=== PATIENT | male | born 1990 | race Caucasian/White ===

== ENCOUNTER 2019-11-16 19:04 | Emergency (ER) | payer MEDICAID ==
[~2019-11-16] VITALS: Ht 177.8 cm; Wt 114.8 kg
--- NOTE | 2019-11-16 19:36 | NUR ---
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
[2019-11-16] MEDS ORDERED: IBUPROFEN 800 MG TABLET ONE (19:39)
[2019-11-16] MEDS ORDERED: IBUPROFEN 800 MG TABLET PO ONE (19:45)
--- NOTE | 2019-11-16 19:49 | NUR ---
Xray at bedside.
--- NOTE | 2019-11-16 20:42 | NUR ---
Patient discharged to home in stable conditon. Written and verbal after care instructions given. Patient verbalizes understanding of instructions. Patient ambulated with stable gait.
[2019-11-16 20:43] VITALS: BP 132/79
== END 2019-11-16 20:43 | disposition home or self-care (01) ==
LOC: ER 19:09
DX: S90.122A Contusion of left lesser toe(s) without damage to nail, initial encounter (principal); S93.602A Unspecified sprain of left foot, initial encounter; F11.10 Opioid abuse, uncomplicated; F15.10 Other stimulant abuse, uncomplicated; W22.8XXA Striking against or struck by other objects, initial encounter; Y93.89 Activity, other specified; Y92.89 Other specified places as the place of occurrence of the external cause; Y99.8 Other external cause status
CPT/HCPCS: 73630; A4663

== ENCOUNTER 2020-06-29 13:56 | Emergency (ER) | payer MEDICAID ==
[~2020-06-29] VITALS: Ht 177.8 cm; Wt 114.8 kg
--- NOTE | 2020-06-29 14:17 | NUR ---
Dr. Bello at bedside for MSE
--- NOTE | 2020-06-29 14:29 | NUR ---
Patient discharged to home in stable condition. Written and verbal after care instructions given. Patient verbalizes understanding of instructions. Stressed follow up or return to ER for worsening s/s. Patient ambulated with steady gait. NAD noted
[2020-06-29 14:31] VITALS: BP 123/67
== END 2020-06-29 14:29 | disposition home or self-care (01) ==
LOC: ER 13:56
DX: H60.92 Unspecified otitis externa, left ear (principal); H66.92 Otitis media, unspecified, left ear
CPT/HCPCS: A4663